=== PATIENT | female | born 1960 | race Caucasian/White ===

== ENCOUNTER 2017-02-24 11:16 | Emergency (ER) | payer OTHER ==
[2017-02-24 12:50] LABS: HEMOGLOBIN 12.6 gm/dl (12.3-15.3); RED BLOOD COUNT 4.33 M/UL (4.00-5.10); WHITE BLOOD COUNT 10.7 K/UL (4.5-11.0)
[2017-02-24 13:15] LABS: BUN/CREATININE RATIO 26 (0-10)
== END 2017-02-24 14:27 | disposition home or self-care (01) ==
LOC: ER1 11:16
PROVIDERS: Family Medicine
DX: R55 Syncope and collapse (principal); R32 Unspecified urinary incontinence; I10 Essential (primary) hypertension; E78.5 Hyperlipidemia, unspecified; Z88.5 Allergy status to narcotic agent; Z88.1 Allergy status to other antibiotic agents; Z79.891 Long term (current) use of opiate analgesic; Z79.899 Other long term (current) drug therapy
CPT/HCPCS: 36415; 70450; 80053; 81001; 82550; 82553; 83735; 83874; 84484; 85025; 93005; 99284

== ENCOUNTER → 2017-03-01 | Outpatient (CLI) | payer OTHER | LOC: RT 11:47 | DX: R07.9 Chest pain, unspecified (principal); Z88.1 Allergy status to other antibiotic agents; Z88.5 Allergy status to narcotic agent ==